=== PATIENT | male | born 1980 | race Caucasian/White ===

== ENCOUNTER 2017-03-07 14:09 | Emergency (ER) | payer BC ==
[~2017-03-07] VITALS: Ht 182.9 cm; Wt 111.1 kg
[2017-03-07 15:00] VITALS: BP 146/92
[2017-03-07] MEDS ORDERED: LIDOCAINE 2% 20 ML VIAL. IJ ONE (15:30)
--- NOTE | 2017-03-07 15:32 | PHYS DOC ---
Past Medical History Past Medical History: Asthma, Other Additional Past Medical Histor: SINUS ARRYTHMIA Past Surgical History: Other Additional Past Surgical Histo: DENTAL Alcohol Use: Occasionally Drug Use: None Adult General Chief Complaint Chief Complaint: ANIMAL BITE HPI HPI Patient is a 36 year old male presents the ED complaining of dog bite times one hour ago. Patient states he was breaking up a dog fight between his dog and his sister's dog and was accidentally bit in the face. Laceration to lower chin and lower lip. Describes the pain as sharp. Rates the pain as 7 out of 10. Tetanus UTD. States dog is also up to date on immunizations including rabies. Denies LOC, fever, syncope, weakness, chest pain, shortness of breath, head/ neck injury, vision changes or nausea/vomiting. Review of Systems Review of Systems Constitutional: Denies fever or chills [] Eyes: Denies change in visual acuity, redness, or eye pain [] HENT: Denies nasal congestion or sore throat. [] Respiratory: Denies cough or shortness of breath [] Cardiovascular: No additional information not addressed in HPI [] GI: Denies abdominal pain, nausea, vomiting, bloody stools or diarrhea [] : Denies dysuria or hematuria [] Musculoskeletal: Denies back pain or joint pain [] Integument: Denies rash or skin lesions. Complains of facial lacerations. [] Neurologic: Denies headache, focal weakness or sensory changes [] Endocrine: Denies polyuria or polydipsia [] Current Medications Current Medications Current Medications Medications (Trade) Dose Ordered Sig/Clemencia Start Time Stop Time Status Last Admin Dose Admin Lidocaine HCl 20 ml 1X ONCE 03/07/17 15:30 03/07/17 15:31 DC 03/07/17 15:46 20 ML Allergies Allergies Allergies Coded Allergies Type Severity Reaction Last Updated Verified metaproterenol Allergy Intermediate SEIZURES 07/13/15 Yes Physical Exam Physical Exam Constitutional: Well developed, well nourished, no acute distress, non-toxic appearance. [] HENT: Normocephalic, atraumatic, bilateral external ears normal, oropharynx moist, no oral exudates, nose normal. [] Eyes: PERRLA, EOMI, conjunctiva normal, no discharge. [] Neck: Normal range of motion, no tenderness, supple, no stridor. [] Cardiovascular:Heart rate regular rhythm, no murmur [] Lungs & Thorax: Bilateral breath sounds clear to auscultation [] Abdomen: Bowel sounds normal, soft, no tenderness, no masses, no pulsatile masses. [] Skin: Warm, dry, no erythema, no rash. 2.5 CM LACERATION TO UPPER NECK/LOWER CHIN. TWO: STELLATE 0.5 CM LACERATION BELOW LOWER LIP. LEONID BORDER INTACT. [] Back: No tenderness, no CVA tenderness. [] Extremities: No tenderness, no cyanosis, no clubbing, ROM intact, no edema. [] Neurologic: Alert and oriented X 3, normal motor function, normal sensory function, no focal deficits noted. [] Psychologic: Affect normal, judgement normal, mood normal. [] Current Patient Data Vital Signs Vital Signs Date Time Temp Pulse Resp B/P (MAP) Pulse Ox O2 Delivery O2 Flow Rate FiO2 03/07/17 15:00 98.5 81 16 97 Room Air 98.5 EKG EKG [] Radiology/Procedures Radiology/Procedures [] Course & Med Decision Making Course & Med Decision Making Pertinent Labs and Imaging studies reviewed. (See chart for details) []Wounds copiously irrigated with Normal Saline. Wounds closely approximated for cosmetic closure. Will prescribe Augmentin outpatient. Tetanus up-to-date. Patient states it is his sister's dog and it is up-to-date on rabies vaccination. No bony tenderness. No x-ray warranted. Discussed follow-up for wound re-evaluation in 3 days. Provided contact information/education. Discussed reasons to return to the ED sooner. Patient understands and agrees with plan. Dragon Disclaimer Dragon Disclaimer This electronic medical record was generated, in whole or in part, using a voice recognition dictation system. Departure Departure Impression: Primary Impression: Dog bite Disposition: 01 HOME, SELF-CARE Condition: IMPROVED Referrals: KEELY ELISE DO (PCP) Patient Instructions: Animal Bite, Facial Laceration Scripts Amoxicillin/Potassium Clav (AUGMENTIN 875-125 TABLET) 1 Each Tablet 1 TAB PO BID, #20 TAB Prov: IWONA GOMEZ 03/07/17 Laceration/Wound Repair Laceration/Wound Repair : Wound Location: face (NECK AND CHIN) Wound's Depth, Shape: flap Wound Length (cm): 2 Wound Explored: clean Irrigated w/ Saline (ccs): 1000 Betadine Prep?: Yes Anesthesia: 1% Lidocaine Wound Repaired With: sutures Suture Size/Type: 5:0 Number of Sutures: 5 Sterile Dressing Applied?: Yes Progress Wound closely approximated for cosmetic reasons. 5 sutures placed. No complications. Patient tolerated well. Laceration/Wound Repair Laceration/Wound Repair : Wound Location: mouth (below lower lip. leonid border unaffected.) Wound's Depth, Shape: superficial Wound Length (cm): 0 Wound Explored: clean Irrigated w/ Saline (ccs): 1000 Betadine Prep?: Yes Anesthesia: 1% Lidocaine Wound Repaired With: sutures Suture Size/Type: 5:0 Number of Sutures: 1 Sterile Dressing Applied?: Yes Progress Wound closely approximated for cosmetic reasons. No complications. Patient tolerated well. Laceration/Wound Repair Laceration/Wound Repair : Wound Location: mouth (below lower lip. leonid border unaffected.) Wound's Depth, Shape: superficial, stellate Wound Length (cm): 0 Wound Explored: clean Irrigated w/ Saline (ccs): 1000 Betadine Prep?: Yes Anesthesia: 1% Lidocaine Suture Size/Type: 5:0 Number of Sutures: 2 Sterile Dressing Applied?: Yes Progress Wound closely approximated for cosmetic reasons. No complications. Patient tolerated well. IWONA GOMEZ Mar 07, 2017 15:32
[2017-03-07] MEDS ORDERED: AMOX1TAB61 PO (16:11)
== END 2017-03-07 16:27 | disposition home or self-care (01) ==
LOC: ER 14:09
DX: S01.511A Laceration without foreign body of lip, initial encounter (principal); S01.81XA Laceration without foreign body of other part of head, initial encounter; J45.909 Unspecified asthma, uncomplicated; Z88.8 Allergy status to other drugs, medicaments and biological substances; W54.0XXA Bitten by dog, initial encounter; Y93.89 Activity, other specified; Y92.89 Other specified places as the place of occurrence of the external cause; Y99.8 Other external cause status
CPT/HCPCS: 12013; 99283-25; J2001

== ENCOUNTER 2021-01-29 21:12 | Emergency (ER) | payer BC, OTHER ==
[~2021-01-29] VITALS: Ht 195.6 cm; Wt 118.2 kg
[~2021-01-29 21:12] MED LIST: AMOX1TAB61 PO
[2021-01-29 23:21] VITALS: BP 150/96
[2021-01-30] MEDS ORDERED: PRED-220 PO (00:54)
--- NOTE | 2021-01-30 00:54 | PHYS DOC ---
Past Medical History Past Medical History: Asthma, Other Additional Past Medical Histor: SINUS ARRYTHMIA Past Surgical History: Other Additional Past Surgical Histo: DENTAL Smoking Status: Never Smoker Alcohol Use: None Drug Use: None General Adult EDM: Chief Complaint: ITCHING HPI: HPI: Patient is a 40-year-old male who presents to the emergency department complaining of rash to skin since this past Thursday. Patient reports he mowed his lawn on Thursday and then noticed a rash on his arms and legs patient reports it is very itchy, denies hives. States minor to no relief with hydrocortisone cream. Patient denies chest pain, fever or chills, chest congestion or nasal congestion, nausea, vomiting, or diarrhea. Reports his last tetanus immunization was greater than 5 years ago. Patient denies other physical complaints or physical concerns. Review of Systems: Review of Systems: 14 body systems of review of systems have been reviewed. See HPI for pertinent positives and negative responses, otherwise all other systems are negative, nonpertinent or noncontributory. Constitutional: Negative except as outlined in HPI above. Skin: Negative except as outlined in HPI above. Eyes: Negative except as outlined in HPI above. HENT: Negative except as outlined in HPI above. Respiratory: Negative except as outlined in HPI above. Cardiovascular: Negative except as outlined in HPI above. GI: Negative except as outlined in HPI above. : Negative except as outlined in HPI above. Musculoskeletal: Negative except as outlined in HPI above. Integument: Negative except as outlined in HPI above. Neurologic: Negative except as outlined in HPI above. Endocrine: Negative except as outlined in HPI above. Lymphatic: Negative except as outlined in HPI above. Psychiatric: Negative except as outlined in HPI above. Heart Score: C/O Chest Pain: No Risk Factors: Risk Factors: DM, Current or recent (<one month) smoker, HTN, HLP, family history of CAD, obesity. Risk Scores: Score 0 - 3: 2.5% MACE over next 6 weeks - Discharge Home Score 4 - 6: 20.3% MACE over next 6 weeks - Admit for Clinical Observation Score 7 - 10: 72.7% MACE over next 6 weeks - Early Invasive Strategies Allergies: Allergies: Allergies Coded Allergies Type Severity Reaction Last Updated Verified metaproterenol Allergy Intermediate SEIZURES 07/13/15 Yes Physical Exam: PE: Constitutional: Well developed, well nourished, no acute distress, non-toxic appearance. 40-year-old male in no apparent distress. HENT: Normocephalic, atraumatic. Eyes: Conjunctiva normal, no discharge. Neck: Normal range of motion, no stridor. Cardiovascular: No cyanosis appreciated, distal cap refill less than 2 seconds. Lungs & Thorax: Patient is in no respiratory distress, no audible adventitious lung sounds appreciated. Abdomen: Nontender, no abnormalities noted. Skin: Warm, dry, no erythema, no rash. Lesions consistent with bug bites to bilateral lower extremities, bilateral upper extremities, neck area consistent with area exposed from clothing. No infectious process appreciated Back: No tenderness, no deformities. Extremities: No tenderness, no cyanosis, no clubbing, ROM intact, no edema. [] Neurologic: Alert and oriented X 3, normal motor function, normal sensory function, no focal deficits noted. Psychologic: Affect normal, judgement normal, mood normal. Current Patient Data: Vital Signs: Vital Signs Date Time Temp Pulse Resp B/P (MAP) Pulse Ox O2 Delivery O2 Flow Rate FiO2 01/29/21 23:21 97.7 82 24 150/96 (114) 95 Room Air 97.7 EKG: EKG: [] Radiology/Procedures: Radiology/Procedures: [] Course & Med Decision Making: Course & Med Decision Making Pertinent Labs and Imaging studies reviewed. (See chart for details) 40-year-old male, vital signs reviewed, emergency department concerning rash on skin after mowing lawn Thursday. Physical examination and physical presentation consistent with insect bite bites that are not infected at this time, discussed with patient using [id number] bug bite relief medications, will give steroid injection in ED and sent home with oral prednisone prescription for itching and discomfort, discussed at length with patient using ugqt-pto-dufkhdd medications such as Caladryl, Campho-Phenique, or gel for itching and discomfort. Patient gave verbal understanding of home care instructions. Will bring patient's tetanus immunization up-to-date today in the emergency department. Discussed with the patient all findings and diagnostic testing as well as the need to follow-up with their primary care provider for further evaluation and treatment or return to the ED if any new or worsening symptoms. Strict return precautions were also discussed at length, the patient voiced understanding and agreement with the discharge planning. The patient was nontoxic in appearance, in no apparent distress, and hemodynamically stable at the time of disposition. Dragon Disclaimer: Dragon Disclaimer: This electronic medical record was generated, in whole or in part, using a voice recognition dictation system. Departure Departure Impression: Primary Impression: Insect bites Qualified Codes: W57.XXXA - Bitten or stung by nonvenomous insect and other nonvenomous arthropods, initial encounter Disposition: HOME / SELF CARE / HOMELESS Condition: GOOD Referrals: NO PCP (PCP) Patient Instructions: Insect Bite Additional Instructions: You were seen today in the emergency department for a rash to your skin. After close examination this rash appears to be caused from insect bites. As we discussed at length, please use yygj-wxn-eqzzqkm medication such as Campho- Phenique, Caladryl, or Orajel for itching and discomfort. I have started you on a steroid regimen in the ED today, I have sent prescriptions to the pharmacy for ongoing steroid, please take as directed until complete. Please follow-up with your primary care physician for ongoing symptoms. Return to the emergency department for worsening symptoms or other concerns. Thank you for visiting our Emergency Department. It was a pleasure taking care of you today in the emergency department and we appreciate you trusting us with your care. If any additional problems come up don't hesitate to return to visit us. Please follow up with your primary care provider so they can plan additional care if needed and know about the problem that you had. If symptoms worsen come back to the Emergency Department. Any concerning symptoms that start such as chest pain, shortness of air, weakness or numbness on one side of the body, running high fevers or any other concerning symptoms return to the ER. Scripts Prednisone (PREDNISONE ) 10 Mg Tablet 10 MG PO UD for insect bite reaction, #40 TAB 0 Refills Take 4 tablets each day days 1-4, then 3 tablets each day days 5-8, then 2 tablets each day days 9-12, then 1 tablet each day days 13-16. Prov: JENNIFER BENITEZ APRN 01/30/21 JENNIFER BENITEZ APRN Jan 30, 2021 00:54
[2021-01-30] MEDS ORDERED: DIPH,PERTUSS(ACELL),TET VAC/PF 0.5 ML SYRINGE. VAX IM ONE (01:30)
[2021-01-30] MEDS ORDERED: methylPREDNISolone ACETATE 80 MG/ML VIAL. IM ONE (01:30)
[2021-01-30] MEDS ORDERED: hydrOXYzine 25 MG TABLET PO ONE (01:30)
== END 2021-01-30 01:20 | disposition home or self-care (01) ==
LOC: ER 21:12
DX: S40.862A Insect bite (nonvenomous) of left upper arm, initial encounter (principal); S40.861A Insect bite (nonvenomous) of right upper arm, initial encounter; S80.862A Insect bite (nonvenomous), left lower leg, initial encounter; S80.861A Insect bite (nonvenomous), right lower leg, initial encounter; J45.909 Unspecified asthma, uncomplicated; Z88.8 Allergy status to other drugs, medicaments and biological substances; W57.XXXA Bitten or stung by nonvenomous insect and other nonvenomous arthropods, initial encounter; Y93.89 Activity, other specified; Y92.89 Other specified places as the place of occurrence of the external cause; Y99.8 Other external cause status
CPT/HCPCS: 90471; 90715; 96372; 99284; J1040

== ENCOUNTER 2021-05-29 23:28 | Observation (INO) | payer OTHER ==
[~2021-05-29] VITALS: Ht 195.6 cm; Wt 131.2 kg
[~2021-05-29 23:28] MED LIST changes: +PRED-220 PO
[2021-05-30] MEDS ORDERED: GLUCAGON,HUMAN RECOMBINANT 1 MG/ML VIAL. IV ONE (01:00)
--- NOTE | 2021-05-30 01:16 | RAD ---
XR ABDOMEN COMP ACUTE History: Reason: esophageal foreign body sensation / Spl. Instructions: / History: Technique: Upright and supine views the abdomen. Comparison: None. Findings: No consolidation or pleural effusion. No pneumothorax. Normal heart size. No pneumoperitoneum. Minimal small bowel gas. Air and stool throughout the colon. Moderate proximal colonic stool burden. No radiopaque foreign body. Impression: 1. Nonobstructed bowel gas pattern. Electronically signed by: Shun Ceja DO (05/30/2021 1:14 AM) [facility]
--- NOTE | 2021-05-30 01:33 | PHYS DOC ---
Past Medical History Past Medical History: Asthma, GERD, Hypertension, Other Additional Past Medical Histor: SINUS ARRYTHMIA Past Surgical History: Other Additional Past Surgical Histo: DENTAL Past Surgical History esophageal stricture dialation Smoking Status: Never Smoker Alcohol Use: None Drug Use: None General Adult EDM: Chief Complaint: Food bolus stuck in esophagus HPI: HPI: Patient is a 40 year old male who presents with a chief complaint of a food bolus stuck in his esophagus. Patient states that he was eating a chicken sandwich 5 hours ago when a large piece of food became obstructed.in his lower esophagus. Patient tried to allow this to pass naturally, denies any associated symptoms, denies radiation. Review of Systems: Review of Systems: Constitutional: Denies fever or chills Eyes: Denies redness or eye pain Respiratory: Denies cough or shortness of breath Cardiovascular: Denies chest pain or palpitations GI: complains of abdominal pain, mild nausea : Denies dysuria or hematuria Musculoskeletal: Denies back pain or joint pain Integument: Denies rash or skin lesions Neurologic: Denies headache, focal weakness or sensory changes Complete systems were reviewed and found to be within normal limits, except as documented in this note. Heart Score: C/O Chest Pain: N/A Current Medications: Current Medications Medications (Trade) Dose Ordered Sig/Clemencia Start Time Stop Time Status Last Admin Dose Admin Glucagon (Glucagen) 1 mg 1X ONCE 05/30/21 01:00 05/30/21 01:01 DC 05/30/21 01:07 1 MG Allergies: Allergies: Allergies Coded Allergies Type Severity Reaction Last Updated Verified metaproterenol Allergy Intermediate SEIZURES 07/13/15 Yes Physical Exam: PE: Constitutional: Well developed, well nourished, no acute distress, non-toxic appearance HENT: Normocephalic, atraumatic Eyes: conjunctiva normal, no discharge Neck: Normal range of motion, no tenderness, Lungs & Thorax: No respiratory distress, equal chest rise and fall, CTAB Abdomen: Soft, epigastric tenderness Skin: Warm, dry, no erythema, no rash Extremities: No tenderness, no edema Neurologic: Alert and oriented X 3, no focal deficits noted Psychologic: Affect normal, judgment normal Current Patient Data: Vital Signs: Vital Signs Date Time Temp Pulse Resp B/P (MAP) Pulse Ox O2 Delivery O2 Flow Rate FiO2 05/30/21 00:15 98.7 90 20 137/92 (107) 98 Room Air 98.7 EKG: EKG: [] Radiology/Procedures: Radiology/Procedures: PROCEDURE: ACUTE ABDOMEN SERIES XR ABDOMEN COMP ACUTE History: Reason: esophageal foreign body sensation / Spl. Instructions: / History: Technique: Upright and supine views the abdomen. Comparison: None. Findings: No consolidation or pleural effusion. No pneumothorax. Normal heart size. No pneumoperitoneum. Minimal small bowel gas. Air and stool throughout the colon. Moderate proximal colonic stool burden. No radiopaque foreign body. Impression: 1. Nonobstructed bowel gas pattern. Electronically signed by: Shun Ceja DO (05/30/2021 1:14 AM) [facility] Course & Med Decision Making: Course & Med Decision Making Pertinent Labs and Imaging studies reviewed. (See chart for details) Patient presented with a food bolus stuck in his esophagus, this has happened in the past which required GI to perform EGD. Glucagon given with no improvement. Nausea, pain and heart burn have been addressed and treated. Patient will be admitted to medicine and prepped for upcoming EGD tomorrow. Patient stable for discharge with outpatient follow-up with PCP. Discussed findings and plan with patient, who acknowledges understanding and agreement. Osvaldo Disclaimer: Osvaldo Disclaimer: This electronic medical record was generated, in whole or in part, using a voice recognition dictation system. Departure Departure Referrals: NO PCP (PCP) JENNIFER BE DO May 30, 2021 01:33
[2021-05-30] MEDS ORDERED: IV NORMAL SALINE 1000ML BAG 1,000 ML IV SCH (01:45)
[2021-05-30] MEDS ORDERED: ONDANSETRON PF 4 MG/2 ML VIAL. IVP PRN (01:45)
[2021-05-30] MEDS ORDERED: DEXTROSE 50% 25 GM / 50ML DISP.SYRIN. IV PRN (01:45)
[2021-05-30 01:46] LABS: BASO # 0.1 x10^3/uL (0.0-0.2); BASO % 1 % (0-3); EOS # 0.8 x10^3/uL (0.0-0.7); EOS % 8 % (0-3); HEMATOCRIT 45.3 % (39.0-53.0); HEMOGLOBIN 15.3 g/dL (13.0-17.5); LYMPH # 2.7 x10^3/uL (1.0-4.8); LYMPH % 28 % (24-48); MEAN CORPUSCULAR HEMOGLOBIN 32 pg (25-35); MEAN CORPUSCULAR HGB CONC 34 g/dL (31-37); MEAN CORPUSCULAR VOLUME 93 fL (79-100); MONO # 0.8 x10^3/uL (0.0-1.1); MONO % 9 % (0-9); NEUT # 5.1 x10^3/uL (1.8-7.7); NEUT % 55 % (31-73); PLATELET COUNT 232 x10^3/uL (140-400); RED BLOOD COUNT 4.86 x10^6/uL (4.30-5.70); RED CELL DISTRIBUTION WIDTH 13.9 % (11.5-14.5); WHITE BLOOD COUNT 9.4 x10^3/uL (4.0-11.0)
[2021-05-30] MEDS ORDERED: FAMOTIDINE 20 MG/2 ML VIAL IVP ONE (02:00)
[2021-05-30] MEDS ORDERED: KETOROLAC 30 MG/ML VIAL. IVP ONE (02:00)
[2021-05-30 02:41] LABS: CALCIUM 8.7 mg/dL (8.5-10.1); CREATININE 1.1 mg/dL (0.7-1.3); GFR 73.8; POTASSIUM 4.1 mmol/L (3.5-5.1)
[2021-05-30 02:47] LABS: ALBUMIN/GLOBULIN RATIO 1.1 (1.0-1.7); TOTAL BILIRUBIN 0.5 mg/dL (0.2-1.0); TOTAL PROTEIN 7.5 g/dL (6.4-8.2)
[2021-05-30 03:15] VITALS: BP 121/74
[2021-05-30] MEDS ORDERED: OMEP40CA7 PO (04:18)
[2021-05-30] MEDS ORDERED: SITA1TAB11 PO (04:18)
[2021-05-30] MEDS ORDERED: ATOR20TA58 PO (04:18)
[2021-05-30] MEDS ORDERED: LISI5TAB15 PO (04:18)
[2021-05-30 07:00] VITALS: BP 109/74
--- NOTE | 2021-05-30 07:47 | NUR ---
pt transported via wheelchair for EGD.
[2021-05-30] MEDS ORDERED: INSULIN LISPRO 300 UNITS/3 ML VIAL. SQ SCH (08:00)
[2021-05-30 08:09] VITALS: BP 130/79
[2021-05-30] MEDS ORDERED: LIDOCAINE 2% PF 5 ML VIAL. ONE (08:27)
[2021-05-30] MEDS ORDERED: PROPOFOL 10 MG/ML (20ML) VIAL. IV ONE (08:27)
--- NOTE | 2021-05-30 08:52 | PDOC2 ---
GI CONSULT Date of Service: DATE: 05/30/21 TIME: 08:51 Reason For Consult: esophageal food bolus HPI: HPI: 40 y/o male admitted through ER. Eating chicken sandwich last night and got stuck in [facility]. No help w/ glucagon in ER and plans for EGD/disimpaction later this morning. Currently cody erating own secretions. H/o same requiring past disimpaction and dilations. Recently (for past two months) solid foods have been getting caught in [facility] about once or twice weekly - til now has been able to flush down with water. Good control of GERD symptoms w/ omeprazole 40mg BID. No n/v, abd pain, diarrhea, constipation, hematochezia, melena, change in appetite, or weight l oss. He reports last EGD for disimpaction was performed @ [facility] [address] Chavez; he was told to let future endoscopists know that Dr. Chavez recommends "always dilate to 60." EGD by Dr. 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 Esophageal biopsy c/w reflux w/ ulceration (no Bello's, dysplasia, or malignancy). Also mention of past EGDs/dilations (several in 2010) - distal esophageal biopsies revealed EoE once - never on inhaled steroids he can recall. Reports normal colonoscopy ~20 years ago. No GB, liver, pancreas, or PUD history. He is edentulous and feels this contributes some to his swallowing issues. Had COVID vaccines, doesn't want booster. Office notes indicate past ENT eval for "tonillitis" - told symptoms may be related to GERD. Additional h/o chronic cough. PMH: PMH: HTN, HLD, DM, childhood asthma, nephrolithiasis dental extractions FH: Family History: Other (father - "markers for colon cancer but no cancer") Social History: Smoke: No ALCOHOL: social Drugs: Marijuana ROS: GEN: Denies fevers, chills, sweats HEENT: Denies blurred vision, sore throat CV: Denies chest pain RESP: Denies shortness of air, cough GI: Per HPI : Denies hematuria, dysuria ENDO: Denies weight changes NEURO: Denies confusion, dizziness MSK: Denies weakness, joint pain/swelling SKIN: Denies jaundice, pruritus Vitals: Vitals: Vital Signs Date Time Temp Pulse Resp B/P (MAP) Pulse Ox O2 Delivery O2 Flow Rate FiO2 05/30/21 08:09 97.5 80 14 93 97.5 05/30/21 07:00 109/74 (86) Room Air Labs: Labs: Laboratory Tests Test 05/30/21 01:00 05/30/21 02:15 05/30/21 02:25 05/30/21 06:20 White Blood Count 9.4 x10^3/uL (4.0-11.0) Red Blood Count 4.86 x10^6/uL (4.30-5.70) Hemoglobin 15.3 g/dL (13.0-17.5) Hematocrit 45.3 % (39.0-53.0) Mean Corpuscular Volume 93 fL (79-100) Mean Corpuscular Hemoglobin 32 pg (25-35) Mean Corpuscular Hemoglobin Concent 34 g/dL (31-37) Red Cell Distribution Width 13.9 % (11.5-14.5) Platelet Count 232 x10^3/uL (140-400) Neutrophils (%) (Auto) 55 % (31-73) Lymphocytes (%) (Auto) 28 % (24-48) Monocytes (%) (Auto) 9 % (0-9) Eosinophils (%) (Auto) 8 % (0-3) Basophils (%) (Auto) 1 % (0-3) Neutrophils # (Auto) 5.1 x10^3/uL (1.8-7.7) Lymphocytes # (Auto) 2.7 x10^3/uL (1.0-4.8) Monocytes # (Auto) 0.8 x10^3/uL (0.0-1.1) Eosinophils # (Auto) 0.8 x10^3/uL (0.0-0.7) Basophils # (Auto) 0.1 x10^3/uL (0.0-0.2) SARS-CoV-2 Antigen (Rapid) Negative (NEGATIVE) Sodium Level 141 mmol/L (136-145) Potassium Level 4.1 mmol/L (3.5-5.1) Chloride Level 101 mmol/L (98-107) Carbon Dioxide Level 30 mmol/L (21-32) Anion Gap 10 (6-14) Blood Urea Nitrogen 13 mg/dL (8-26) Creatinine 1.1 mg/dL (0.7-1.3) Estimated GFR (Cockcroft-Gault) 73.8 BUN/Creatinine Ratio 12 (6-20) Glucose Level 142 mg/dL (70-99) Calcium Level 8.7 mg/dL (8.5-10.1) Magnesium Level 2.0 mg/dL (1.8-2.4) Total Bilirubin 0.5 mg/dL (0.2-1.0) Aspartate Amino Transf (AST/SGOT) 25 U/L (15-37) Alanine Aminotransferase (ALT/SGPT) 73 U/L (16-63) Alkaline Phosphatase 91 U/L (46-116) Total Protein 7.5 g/dL (6.4-8.2) Albumin 4.0 g/dL (3.4-5.0) Albumin/Globulin Ratio 1.1 (1.0-1.7) Lipase 110 U/L (73-393) Glucose (Fingerstick) 104 mg/dL (70-99) Allergies: Coded Allergies: metaproterenol (Verified Allergy, Intermediate, SEIZURES, 05/30/21) Medications: Current Medications Medications (Trade) Dose Ordered Sig/Clemencia Route PRN Reason Start Time Stop Time Status Last Admin Dose Admin Glucagon (Glucagen) 1 mg 1X ONCE IV 05/30/21 01:00 05/30/21 01:01 DC 05/30/21 01:07 Famotidine (Pepcid Vial) 20 mg 1X ONCE IVP 05/30/21 02:00 05/30/21 02:01 DC 05/30/21 02:26 Ketorolac Tromethamine (Toradol 30mg Vial) 15 mg 1X ONCE IVP 05/30/21 02:00 05/30/21 02:01 DC 05/30/21 02:25 Ondansetron HCl (Zofran) 4 mg PRN Q8HRS PRN IVP NAUSEA/VOMITING 1ST CHOICE 05/30/21 01:45 05/31/21 01:44 05/30/21 02:22 Sodium Chloride 1,000 ml @ 100 mls/hr Q10H IV 05/30/21 01:45 05/31/21 01:44 05/30/21 02:20 Imaging: Imaging: AAS 05/30/21 Impression: 1. Nonobstructed bowel gas pattern. PE: GEN: NAD HEENT: Atraumatic, PERRL LUNGS: CTAB HEART: RRR - some sternal discomfort ABD: NABS, round, non-tender, soft EXTREMITY: No edema SKIN: No rashes, no jaundice NEURO/PSYCH: A & O 3 A/P: A/P: Food impaction - recurrent issue Chronic/recurrent dysphagia GERD on PPI BID CRC screen - reportedly normal ~20 years ago COVID negative -- EGD this morning for disimpaction. Further recs pending. ASYA ALVARADO May 30, 2021 08:52
--- NOTE | 2021-05-30 09:15 | PDOC4 ---
PROCEDURE Procedure EGD/dilation Indication: possible impacted food bolus. Meds: per anesthesia Findings: E--partially-healed reflux at 40-41 cm. No Bello's. No bolus. G--2 chunks of chicken in stomach. Occasional antral erosion. D--Normal to second portion. Dilated with 54F Varner w/o resistance. Joe. well. IMP: Reflux esophagitis. Gastric erosion. Spontaneous bolus passage. Empirically dilated. REC: Continue BID PPI; instructed on better timing of dosing. Will encourage office f/u in 3-4 weeks. OK to feed and consider discharge. JENNIFER MURILLO MD May 30, 2021 09:15
[2021-05-30] MEDS ORDERED: IV RINGERS,LACTATED 1000ML 1,000 ML IV SCH (09:30)
--- NOTE | 2021-05-30 09:45 | NUR ---
pt returned to room from EGD, report from Addy VELAZQUEZ stated procedure went well. Diet advanced to GI soft and if tolerated well patient should be able to discharge home today. No other needs.
--- NOTE | 2021-05-30 09:50 | PDOC1 ---
History and Physical Date of Service: DOS: DATE: 05/30/21 TIME: 09:48 Chief Complaint: Chief Complain: food stuck in throat History of Present Illness: HPI: Patient is a 40 year old male who presents with a chief complaint of a food bolus stuck in his esophagus. Patient states that he was eating a chicken sandwich 5 hours ago when a large piece of food became obstructed.in his lower esophagus. Patient tried to allow this to pass naturally, denies any associated symptoms, denies radiation. Past Medical/Surgical History: PMH/PSH: Past Medical History: Asthma, GERD, Hypertension, Other Additional Past Medical Histor: SINUS ARRYTHMIA Past Surgical History: Other Additional Past Surgical Histo: DENTAL Past Surgical History esophageal stricture dialation Allergies: Allergies: Coded Allergies: metaproterenol (Verified Allergy, Intermediate, SEIZURES, 05/30/21) Family History: Family History: HTN Social History: Social History: Smoking Status: Never Smoker Alcohol Use: None Drug Use: None Current Medications: Current Medications Current Medications Glucagon (Glucagen) 1 mg 1X ONCE IV Last administered on 05/30/21at 01:07; Start 05/30/21 at 01:00; Stop 05/30/21 at 01:01; Status DC Famotidine (Pepcid Vial) 20 mg 1X ONCE IVP Last administered on 05/30/21at 02:26; Start 05/30/21 at 02:00; Stop 05/30/21 at 02:01; Status DC Ketorolac Tromethamine (Toradol 30mg Vial) 15 mg 1X ONCE IVP Last administered on 05/30/21at 02:25; Start 05/30/21 at 02:00; Stop 05/30/21 at 02:01; Status DC Ondansetron HCl (Zofran) 4 mg PRN Q8HRS PRN IVP NAUSEA/VOMITING 1ST CHOICE Last administered on 05/30/21at 02:22; Start 05/30/21 at 01:45; Stop 05/31/21 at 01:44 Sodium Chloride 1,000 ml @ 100 mls/hr Q10H IV Last administered on 05/30/21at 02:20; Start 05/30/21 at 01:45; Stop 05/31/21 at 01:44 Insulin Human Lispro (HumaLOG) 0-5 UNITS TIDWMEALS SQ ; Start 05/30/21 at 08:00 Dextrose (Dextrose 50%-Water Syringe) 12.5 gm PRN Q15MIN PRN IV SEE COMMENTS; Start 05/30/21 at 01:45 Propofol (Diprivan) 200 mg STK-MED ONCE IV ; Start 05/30/21 at 08:27; Stop 05/30/21 at 08:27; Status DC Lidocaine HCl (Lidocaine Pf 2% Vial) 5 ml STK-MED ONCE .ROUTE ; Start 05/30/21 at 08:27; Stop 05/30/21 at 08:27; Status DC Ringer's Solution 1,000 ml @ 125 mls/hr Q8H IV Last administered on 05/30/21at 09:19; Start 05/30/21 at 09:30; Stop 05/30/21 at 21:29 Active Scripts Active Reported Janumet 50-1,000 Mg Tablet (Sitagliptin Phos/Metformin Hcl) 1 Each Tablet 1 Tab PO BID Omeprazole 40 Mg Capsule.dr 1 Cap PO BID Lisinopril 5 Mg Tablet 1 Tab PO DAILY Atorvastatin Calcium 20 Mg Tablet 1 Tab PO DAILY ROS: Review of Systems Review of System Unless noted in HPI 14 point review of systems was negative Physical Exam: Vital Signs: Vital Signs Date Time Temp Pulse Resp B/P (MAP) Pulse Ox O2 Delivery O2 Flow Rate FiO2 05/30/21 09:36 97.6 84 14 124/82 95 Room Air 97.6 05/30/21 09:08 8 Physcial Exam: GEN: No apparent distress. Alert and oriented HEENT: Normal cephalic, atraumatic, external auditory canals are patent EYES: Extraocular muscles are intact, pupil are equally round and reactive to light and accommodation MUSCULOSKELETAL: Well developed , well nourished, good range of motion ENDOCRINE: No thyromegaly was palpated LYMPHATICS: No cervical chain or axillary nodes were noted HEMATOPOIETIC: No bruising NECK: Supple, no JVD, no thyromegaly was noted LUNGS: Clear to auscultation in all lung foy without rhonchi or wheezing HEART: RRR, S!, S2 present. Peripheral pulses intact, no obvious murmurs noted ABDOMEN: Soft, nontender. Positive bowel sounds, no organomegaly, normal bowel sounds EXTREMITIES: Without clubbing, cyanosis, or edema. Pedal pulses intact. Negative Homans sign NEUROLOGIC: Normal speech and tone. A&O x 3, moves all extremities, no obvious focal deficits PSYCHIATRIC: Normal affect, normal mood. Stable SKIN: No ulcerations or rashes, good skin turgor, no jaundice VASCULAR: Good capillary refill, neurovascular bundle appears to be intact Labs: Labs: Laboratory Tests Test 05/30/21 01:00 05/30/21 02:15 05/30/21 02:25 05/30/21 06:20 White Blood Count 9.4 x10^3/uL (4.0-11.0) Red Blood Count 4.86 x10^6/uL (4.30-5.70) Hemoglobin 15.3 g/dL (13.0-17.5) Hematocrit 45.3 % (39.0-53.0) Mean Corpuscular Volume 93 fL (79-100) Mean Corpuscular Hemoglobin 32 pg (25-35) Mean Corpuscular Hemoglobin Concent 34 g/dL (31-37) Red Cell Distribution Width 13.9 % (11.5-14.5) Platelet Count 232 x10^3/uL (140-400) Neutrophils (%) (Auto) 55 % (31-73) Lymphocytes (%) (Auto) 28 % (24-48) Monocytes (%) (Auto) 9 % (0-9) Eosinophils (%) (Auto) 8 % (0-3) Basophils (%) (Auto) 1 % (0-3) Neutrophils # (Auto) 5.1 x10^3/uL (1.8-7.7) Lymphocytes # (Auto) 2.7 x10^3/uL (1.0-4.8) Monocytes # (Auto) 0.8 x10^3/uL (0.0-1.1) Eosinophils # (Auto) 0.8 x10^3/uL (0.0-0.7) Basophils # (Auto) 0.1 x10^3/uL (0.0-0.2) SARS-CoV-2 RNA (MAUREEN) Negative (Negative) SARS-CoV-2 Antigen (Rapid) Negative (NEGATIVE) Sodium Level 141 mmol/L (136-145) Potassium Level 4.1 mmol/L (3.5-5.1) Chloride Level 101 mmol/L (98-107) Carbon Dioxide Level 30 mmol/L (21-32) Anion Gap 10 (6-14) Blood Urea Nitrogen 13 mg/dL (8-26) Creatinine 1.1 mg/dL (0.7-1.3) Estimated GFR (Cockcroft-Gault) 73.8 BUN/Creatinine Ratio 12 (6-20) Glucose Level 142 mg/dL (70-99) Calcium Level 8.7 mg/dL (8.5-10.1) Magnesium Level 2.0 mg/dL (1.8-2.4) Total Bilirubin 0.5 mg/dL (0.2-1.0) Aspartate Amino Transf (AST/SGOT) 25 U/L (15-37) Alanine Aminotransferase (ALT/SGPT) 73 U/L (16-63) Alkaline Phosphatase 91 U/L (46-116) Total Protein 7.5 g/dL (6.4-8.2) Albumin 4.0 g/dL (3.4-5.0) Albumin/Globulin Ratio 1.1 (1.0-1.7) Lipase 110 U/L (73-393) Glucose (Fingerstick) 104 mg/dL (70-99) Laboratory Tests Test 05/30/21 01:00 05/30/21 02:15 05/30/21 02:25 05/30/21 06:20 White Blood Count 9.4 x10^3/uL (4.0-11.0) Red Blood Count 4.86 x10^6/uL (4.30-5.70) Hemoglobin 15.3 g/dL (13.0-17.5) Hematocrit 45.3 % (39.0-53.0) Mean Corpuscular Volume 93 fL (79-100) Mean Corpuscular Hemoglobin 32 pg (25-35) Mean Corpuscular Hemoglobin Concent 34 g/dL (31-37) Red Cell Distribution Width 13.9 % (11.5-14.5) Platelet Count 232 x10^3/uL (140-400) Neutrophils (%) (Auto) 55 % (31-73) Lymphocytes (%) (Auto) 28 % (24-48) Monocytes (%) (Auto) 9 % (0-9) Eosinophils (%) (Auto) 8 % (0-3) Basophils (%) (Auto) 1 % (0-3) Neutrophils # (Auto) 5.1 x10^3/uL (1.8-7.7) Lymphocytes # (Auto) 2.7 x10^3/uL (1.0-4.8) Monocytes # (Auto) 0.8 x10^3/uL (0.0-1.1) Eosinophils # (Auto) 0.8 x10^3/uL (0.0-0.7) Basophils # (Auto) 0.1 x10^3/uL (0.0-0.2) SARS-CoV-2 RNA (MAUREEN) Negative (Negative) SARS-CoV-2 Antigen (Rapid) Negative (NEGATIVE) Sodium Level 141 mmol/L (136-145) Potassium Level 4.1 mmol/L (3.5-5.1) Chloride Level 101 mmol/L (98-107) Carbon Dioxide Level 30 mmol/L (21-32) Anion Gap 10 (6-14) Blood Urea Nitrogen 13 mg/dL (8-26) Creatinine 1.1 mg/dL (0.7-1.3) Estimated GFR (Cockcroft-Gault) 73.8 BUN/Creatinine Ratio 12 (6-20) Glucose Level 142 mg/dL (70-99) Calcium Level 8.7 mg/dL (8.5-10.1) Magnesium Level 2.0 mg/dL (1.8-2.4) Total Bilirubin 0.5 mg/dL (0.2-1.0) Aspartate Amino Transf (AST/SGOT) 25 U/L (15-37) Alanine Aminotransferase (ALT/SGPT) 73 U/L (16-63) Alkaline Phosphatase 91 U/L (46-116) Total Protein 7.5 g/dL (6.4-8.2) Albumin 4.0 g/dL (3.4-5.0) Albumin/Globulin Ratio 1.1 (1.0-1.7) Lipase 110 U/L (73-393) Glucose (Fingerstick) 104 mg/dL (70-99) Assessment/Plan Assessment/Plan Esophageal food bolus -Presented complaining food stuck in chest -Consulted GI -Planning to perform EGD this morning -Hopeful for discharge afterwards. Justifications for Admission Other Justification ROSEANNE MOSCOSO MD May 30, 2021 09:50
--- NOTE | 2021-05-30 09:56 | PDOC3 ---
[facility]-Discharge Summary Date of Admission: Date of Admission: May 30, 2021 Date of Discharge: Date of Discharge: May 30, 2021 Admission Diagnosis: Problems: (1) Esophageal foreign body Consults: Consults: GI Procedures: Procedures: EGD Hospital Course: Hospital Course: Patient is a 40 year old male who presents with a chief complaint of a food bolus stuck in his esophagus. Patient states that he was eating a chicken sandwich 5 hours ago when a large piece of food became obstructed.in his lower esophagus. Patient tried to allow this to pass naturally, denies any associated symptoms, denies radiation EGD performed showed food bolus had already passed throughout the esophagus. Patient tolerated p.o. intake. Okay to discharge home. Disposition: Disposition/Orders: D/C to Home Activity: Activity: Resume previous activity Diet: Diet: Regular Medications: Home Meds Reported Medications Sitagliptin Phos/Metformin Hcl (JANUMET 50-1,000 MG TABLET) 1 Each Tablet, 1 TAB PO BID for DM, #60 TAB 5 Refills 05/30/21 Omeprazole (OMEPRAZOLE) 40 Mg Capsule.dr, 1 CAP PO BID for GERD, #30 CAP 3 Refills 05/30/21 Lisinopril (LISINOPRIL) 5 Mg Tablet, 1 TAB PO DAILY for HTN, #30 TAB 5 Refills 05/30/21 Atorvastatin Calcium (ATORVASTATIN CALCIUM) 20 Mg Tablet, 1 TAB PO DAILY for hld, #30 TAB 5 Refills 05/30/21 Scheduled Atorvastatin Calcium (Atorvastatin Calcium), 1 TAB PO DAILY, (Reported) Lisinopril (Lisinopril), 1 TAB PO DAILY, (Reported) Omeprazole (Omeprazole), 1 CAP PO BID, (Reported) Sitagliptin Phos/Metformin Hcl (Janumet 50-1,000 Mg Tablet), 1 TAB PO BID, (Reported) Justicifation of Admission Dx: Justifications for Admission: Justification of Admission Dx: Yes (esophageal obstruction) ROSEANNE MOSCOSO MD May 30, 2021 09:56
[2021-05-30 11:00] VITALS: BP 116/74
--- NOTE | 2021-05-30 11:35 | NUR ---
SW following. Discussed with RN, pt from home, room air, EGD this morning, COVID-19 negative. Discharge order for home with self care.
--- NOTE | 2021-05-30 11:57 | NUR ---
pt discharged home via self care. pt transported off unit with all belongings and discharge instructions. verbalized understanding. no other needs.
== END 2021-05-30 11:57 | disposition home or self-care (01) ==
LOC: ER 23:28 → UNDOADMIN 05-30 01:43 → 5 NORTH 05-30 01:43 → INTOOBSV 05-30 02:39
PROVIDERS: ADMIT Internal Medicine; ATTEND Internal Medicine
DX: T18.128A Food in esophagus causing other injury, initial encounter (principal); Z20.822 Contact with and (suspected) exposure to COVID-19; K21.9 Gastro-esophageal reflux disease without esophagitis; I10 Essential (primary) hypertension; J45.909 Unspecified asthma, uncomplicated; I49.8 Other specified cardiac arrhythmias; E11.9 Type 2 diabetes mellitus without complications; E78.5 Hyperlipidemia, unspecified; K21.00 Gastro-esophageal reflux disease with esophagitis, without bleeding; N20.0 Calculus of kidney; T17.228A Food in pharynx causing other injury, initial encounter; Z79.4 Long term (current) use of insulin; Z79.899 Other long term (current) drug therapy; Z98.890 Other specified postprocedural states; K22.10 Ulcer of esophagus without bleeding; K25.9 Gastric ulcer, unspecified as acute or chronic, without hemorrhage or perforation
CPT/HCPCS: 36415; 43450; 74022; 80053; 82962; 83690; 83735; 85025; 87426; 96361; 96374; 96375; 99284; G0378; J1610; J1815; J1885; J2405; J2704; J3490; J7030; J7120; U0003; U0005; 96376; G0379